=== PATIENT | male | born 1960 | race Caucasian/White ===

== ENCOUNTER 2023-08-22 09:00 | Outpatient (REF) | payer OTHER, SELFPAY ==
--- NOTE | ~2023-08-22 | XR_ITS ---
EXAMINATION: XR KNEE, LEFT CLINICAL INFORMATION: Reason for Exam M25.562 - Pain in left knee COMPARISON: None TECHNIQUE: 1 view of the bilateral knees standing. 2 views of the left knee. FINDINGS: LEFT KNEE: No acute fracture or dislocation. Moderate osteoporosis with loss of medial and lateral compartment joint space. Quadriceps tendon enthesopathy. Mineralization in the tibiofemoral joint space may reflect sequelae of chondrocalcinosis. No joint effusion. Soft tissues are unremarkable. RIGHT KNEE: Limited single view of the right knee is remarkable for moderate osteoarthritis with loss of medial and lateral compartment joint space.. XR/XR knee LT 3V IMPRESSION: 1. Moderate degenerative changes of the knees. 2. Mineralization in the left tibiofemoral joint space may reflect sequelae of chondrocalcinosis.
== END 2023-08-22 09:01 | disposition home or self-care (01) ==
LOC: HO.HOSX 09:00
PROVIDERS: Visit Provider Orthopaedic Surgery
DX: M17.12 Unilateral primary osteoarthritis, left knee (principal)
CPT/HCPCS: 20610; 73562; J0665; J1100

== ENCOUNTER 2023-08-22 09:10 | Outpatient (AMB) | payer OTHER, SELFPAY ==
--- NOTE | 2023-08-22 09:13 | A.OFFVIS_ITS ---
Vital Signs 08/22/23 09:21 Height 6 ft 4 in Weight 255 lb BMI 31.0 Intake Visit Reasons: New Pt - Left Knee Pain Intake Note: Rnoa is a 63 year old male who presents today as a new patient with complaints of ongoing left knee pain. Patient reports that his left knee has been painful for a few years now. His pain increases with flexion, such as prolonged sitting. He taked advil which offers mild relief. Allergies No Known Allergies Allergy (Unverified 12/03/19 15:53) HPI HPI New Pt - Left Knee Pain: Details: Rona is a 63 year old male who presents today as a new patient with complaints of ongoing left knee pain. Patient reports that his left knee has been painful for a few years now. His pain increases with flexion, such as prolonged sitting. He taked advil which offers mild relief. [facility] Surgical History (Updated 08/22/23 @ 09:24 by Micaela Huizar CMA) History of prostatectomy (~2001) Social History (Updated 08/22/23 @ 09:24 by Micaela Huizar CMA) Current occupational status: employed Current occupation: technology education teacher Physical Exam Vital Signs: BMI result Body Mass Index 31.0 Extrem Other: Left lateral retropatellar ttp no effusion full ROM Office Procedures Joint Injection/Drain Joint Injection/Drain Details: Injected 1 mL of Decadron and 3 mL 1% lidocaine and 3 mL of 0.25% Marcaine. Site was prepped using aseptic technique. Patient tolerated the procedure well. Primary Site: left knee Approach Used: anterolateral Coding - Large joint Procedure code (CPT) selection complete Results Reviewed Results Reviewed: I personally reviewed relevant radiographs. Mild-moderate PF OA Mild chondrocalcinosis Assessment & Plan Assessment & Plan (1) Patellofemoral arthritis of left knee: Code(s): M17.12 - Unilateral primary osteoarthritis, left knee Category: Medical Plan: Injected left knee today. Reviewed my findings. F/u 3 months Plan I injected his left knee today, he may return no sooner than 3 months for a repeat injection. Orders: Orders XR knee LT 3V Today M25.562 - Pain in left knee Coding Level of Care Code New Pt Level 3 (98475) Diagnoses Patellofemoral arthritis of left knee M17.12 CPT Codes Coding - Large joint: 83947 - Large joint ([id number])
[2023-08-22 09:21] VITALS: BMI 31.0
== END 2023-08-22 10:23 | disposition home or self-care (01) ==
PROVIDERS: PCP Internal Medicine; Visit Provider Orthopaedic Surgery
DX: M17.12 Unilateral primary osteoarthritis, left knee (principal)
CPT/HCPCS: 20610; 99204